=== PATIENT | female | born 1950 ===

== ENCOUNTER → 2024-03-13 | Outpatient (CLI) | payer OTHER ==
[~2024-03-13] MED LIST: ATEN100 PO; ATEN50 PO; IBUP400 PO; LISI20 PO; OMEP20ER PO
== END ==
LOC: LAB SHORT 14:10 → LAB 14:10
DX: N39.0 Urinary tract infection, site not specified (principal)
CPT/HCPCS: 87077; 87086; 87186

== ENCOUNTER → 2024-03-29 | Outpatient (CLI) | payer OTHER | LOC: LAB SHORT 16:07 → LAB 16:07 | DX: N39.0 Urinary tract infection, site not specified (principal) | CPT/HCPCS: 87077; 87086; 87186 ==

== ENCOUNTER → 2024-06-03 | Outpatient (CLI) | payer OTHER | LOC: LAB 16:57 → LAB SHORT 16:57 | DX: M79.662 Pain in left lower leg (principal) | CPT/HCPCS: 85379 ==